=== PATIENT | female | born 1985 | race Caucasian/White ===

== ENCOUNTER 2020-02-10 20:54 | Emergency (ER) | payer MEDICAID ==
[~2020-02-10] VITALS: Ht 165.1 cm; Wt 90.7 kg
[2020-02-10 22:00] VITALS: BP 123/90
--- NOTE | 2020-02-10 22:00 | NUR ---
TO TENT # 03 AMBULATORY
[2020-02-10 22:15] VITALS: BP 123/90
--- NOTE | 2020-02-11 03:19 | NUR ---
PATIENT LEFT WITHOUT BEING SEEN BY DR. MARTINEZ. NO FURTHER CARE PROVIDED FOR PATIENT.
== END 2020-02-11 03:02 | disposition home or self-care (01) ==
LOC: MED 20:54
DX: R06.02 Shortness of breath (principal); R05 Cough; Z53.21 Procedure and treatment not carried out due to patient leaving prior to being seen by health care provider